=== PATIENT | female | born 1965 | race African-American/Black ===

== ENCOUNTER 2017-11-15 10:05 | Outpatient (CLI) | payer OTHER | END 2017-11-15 10:06 | disposition home or self-care (01) | LOC: BICULT 10:05 | PROVIDERS: ATTEND Family Medicine | DX: E04.1 Nontoxic single thyroid nodule (principal); E04.2 Nontoxic multinodular goiter; I10 Essential (primary) hypertension | CPT/HCPCS: 76536 ==

== ENCOUNTER 2020-09-17 08:43 | Outpatient (CLI) | payer OTHER ==
--- NOTE | 2020-09-17 11:53 | ULT ---
THYROID ULTRASOUND: HISTORY: Patient has been off thyroid medication for 4 years. COMPARISON: 11/15/2016 and 11/15/2017. FINDINGS: Thyroid isthmus: 0.37 cm. Right thyroid lobe: 5.6 x 1.7 x 2.1 cm. Left thyroid lobe: 4.3 x 1.3 x 2.1 cm. Thyroid nodules: Multiple cystic, complex and solid nodules throughout the thyroid gland. Largest eric id nodule in the right thyroid lobe measuring 1.1 x 0.8 x 0.7 cm. Largest solid nodule in the left thyroid lobe measures 1.0 x 1.2 x 1.4 cm. IMPRESSION: Increasing number of solid, complex and cystic nodules throughout the thyroid gland. Largest solid no dules have a TIRADS score of TR3 mildly suspicious. Recommendation: Follow-up imaging in one year. Transcribed Date/Time: 09/17/2020 1:03 PM
== END 2020-09-17 08:44 | disposition home or self-care (01) ==
LOC: BICULT 08:43
PROVIDERS: ATTEND Family Medicine
DX: E04.9 Nontoxic goiter, unspecified (principal); E04.2 Nontoxic multinodular goiter
CPT/HCPCS: 76536